=== PATIENT | female | born 1955 | race Caucasian/White ===

== ENCOUNTER 2017-03-11 22:41 | Emergency (ER) | payer MEDICARE, MEDICAID ==
[~2017-03-11] VITALS: Ht 167.6 cm; Wt 141.5 kg
[~2017-03-11 22:41] MED LIST: NO MEDS
[2017-03-11 23:22] LABS: GLUCOSE,POINT OF CARE 269 MG/DL (70-110)
[2017-03-12 03:57] VITALS: BP 118/75
== END 2017-03-12 04:29 | disposition home or self-care (01) ==
LOC: EMS 22:42
DX: M54.9 Dorsalgia, unspecified (principal); M25.561 Pain in right knee; E11.9 Type 2 diabetes mellitus without complications; I10 Essential (primary) hypertension; E78.00 Pure hypercholesterolemia, unspecified
CPT/HCPCS: 72100; 82962; 93971; 99284

== ENCOUNTER 2018-12-05 00:16 | Emergency (ER) | payer MEDICARE, OTHER ==
[~2018-12-05] VITALS: Ht 167.6 cm; Wt 125.0 kg
[2018-12-05 00:39] LABS: GLUCOSE,POINT OF CARE 366 MG/DL (70-110)
[2018-12-05] MEDS ORDERED: METF-960 PO (00:40)
[2018-12-05] MEDS ORDERED: LOVA20 PO (00:40)
[2018-12-05] MEDS ORDERED: HYDROCODONE/ACETAMINOPHEN 5-325 MG TABLET PO ONE (03:45)
[2018-12-05 03:48] VITALS: BP 131/77
== END 2018-12-05 04:17 | disposition home or self-care (01) ==
LOC: EMS 00:31
DX: S40.012A Contusion of left shoulder, initial encounter (principal); E11.9 Type 2 diabetes mellitus without complications; I10 Essential (primary) hypertension; E78.00 Pure hypercholesterolemia, unspecified; Z79.84 Long term (current) use of oral hypoglycemic drugs; W01.0XXA Fall on same level from slipping, tripping and stumbling without subsequent striking against object, initial encounter; Y93.89 Activity, other specified; Y92.89 Other specified places as the place of occurrence of the external cause; Y99.8 Other external cause status
CPT/HCPCS: 29105; 70450